=== PATIENT | female | born 1970 | race Caucasian/White ===

== ENCOUNTER → 2016-11-25 | Outpatient (CLI) | payer OTHER ==
[~2016-11-25] MED LIST: CALCTAB5 PO; ETONMIS VAGRING; MULT-506 PO; OMEG10007 PO
--- NOTE | 2016-11-26 07:42 | MAMMOGRAPHY REPORT ---
BILATERAL DIGITAL SCREENING MAMMOGRAM TOMOSYNTHESIS WITH CAD: 11/25/2016 CLINICAL HISTORY: Routine screening. Patient has no complaints. TECHNIQUE: Breast tomosynthesis in addition to standard 2D mammography was performed. Current study was also evaluated with a Computer Aided Detection (CAD) system. COMPARISON: Comparison is made to exams dated: 07/12/2015 mammogram, 06/03/2014 mammogram, and 04/27/20 12 mammogram - [facility]. BREAST COMPOSITION: The tissue of both breasts is heterogeneously dense, which may obscure small mas ses. FINDINGS: The parenchymal pattern is unchanged. No developing mass, architectural distortion or clus ter of suspicious microcalcifications is seen in either breast. IMPRESSION: ACR BI-RADS CATEGORY 2: BENIGN There is no mammographic evidence of malignancy. A 1 year screening mammogram is recommended. The pa tient will receive written notification of the results. Approximately 10% of breast cancers are not detected with mammography. A negative mammographic report should not delay biopsy if a clinically suggestive mass is present. Libby Leung M.D. ay/:11/25/2016 17:02:49 Wire Spinner: Almita CAPUTO(R)(M), [facility] letter sent: Normal /2 BI-RADS Code: ACR BI-RADS Category 2: Benign
== END | disposition home or self-care (01) ==
LOC: C.MAMM 13:18
PROVIDERS: ATTEND Obstetrics & Gynecology
DX: Z12.31 Encounter for screening mammogram for malignant neoplasm of breast (principal)

== ENCOUNTER 2017-08-04 10:44 | Emergency (ER) | payer OTHER ==
[~2017-08-04] VITALS: Ht 180.3 cm; Wt 75.0 kg
[2017-08-04 10:45] VITALS: BP 137/81; PULSE 86; TEMP 36.8; O2SAT 100; Ht 180.3 cm; Wt 75.0 kg
--- NOTE | 2017-08-04 11:51 | EMERGENCY ROOM VISIT NOTE ---
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 She is right-hand dominant and was suturing in the case, when she accidentally stuck her left third finger. She states that she degloved, examined the area squeezed and did not appreciate any bloody drainage. She then had to return back to this surgical field and scrubbed back in, finished the case then came to the emergency department. She believes that she actually struck the undersurface of the nail. Patient's tetanus is up-to-date. She has sustained prior work-related needlestick injuries previously and has had laboratory testing. Source patient is known to Dr. Chandra. Review of Systems: Review of systems as per HPI. All other systems reviewed were negative. At least 6 systems reviewed. Past Medical History: Electronic medical records are reviewed and summarized as above/below. See Problem List. Social History: Lives at home with her family. [employer] physician. Physical Examination: Vital signs reviewed as per nursing notes. GENERAL: Patient is a pleasant, well-appearing 46-year-old white female who is awake and alert and in no acute distress. SKIN: Examination of the left third finger does not reveal any obvious puncture wound or bleeding. There is no wound care necessary. ED Course Patient was seen and examined as above. Informed consent for HIV and post exposure testing was obtained, and consents and all other paperwork were completed. The patient had no questions, and was comfortable with the treatment plan, and was instructed to follow up with [facility] for review of her laboratory results. The source patient is known, and testing will be obtained from them as well. DIAGNOSIS: Bodily fluid exposure Work-related injury. Current/Historical Medications Scheduled Calcium (Caltrate), 600 MG PO DAILY Etonogestrel/Ethinyl Estradiol (Nuvaring), 1 EA VAGRING MONTHLY Fish Oil (Jackson-3), 1 CAP PO DAILY Multivitamin (Multivitamin), 1 TAB PO DAILY Allergies Coded Allergies: No Known Allergies (Verified , 10/23/10) Vital Signs Date Time Temp Pulse Resp B/P (MAP) Pulse Ox O2 Delivery O2 Flow Rate FiO2 08/04/17 10:45 36.8 86 20 137/81 100 Room Air Departure Information Impression Primary Impression: Needle stick injury of finger of left hand Additional Impression: Work related injury Patient Instructions My [facility] [employer] Additional Instructions Follow up with [facility] for further care and lab review. Problem Qualifiers Primary Impression: Needle stick injury of finger of left hand Encounter type: initial encounter Qualified Codes: S61.239A - Puncture wound without foreign body of unspecified finger without damage to nail, initial encounter; W27.3XXA - Contact with needle (sewing), initial encounter
== END 2017-08-04 10:55 | disposition home or self-care (01) ==
LOC: C.EDB 10:46 → C.EDD 10:55
DX: Z77.21 Contact with and (suspected) exposure to potentially hazardous body fluids (principal); Y99.0 Civilian activity done for income or pay